=== PATIENT | male | born 1965 | race African-American/Black ===

== ENCOUNTER 2018-06-30 09:41 | Emergency (ER) | payer BC ==
--- NOTE | 2018-06-30 09:57 | PDOC ---
Attending Attestation - Resident Resident Name: Rogelio Pina - ED Attending Attestation I have performed the following: I have examined & evaluated the patient, The case was reviewed & discussed with the resident, I agree w/resident's findings & plan, Exceptions are as noted - HPI HPI: 52 yo M history HTN presents with intermittent nosebleeds for past few weeks. + Frontal sinus pressure. He states that he is very congested at night and in the morning, not during the day. He notes that his nose bleeds only when he blows his nose. Denies headaches, weakness, numbness. - Physicial Exam PE: GENERAL: Awake, alert, and fully oriented, in no acute distress HEAD: No signs of trauma EYES: PERRLA, EOMI, sclera anicteric, conjunctiva clear ENT: Auricles normal inspection, hearing grossly normal, nares patent, oropharynx clear without exudates, +visible postnasal drip. Moist mucosa. + Boggy turbinates B/L with friable tissue to the septum. Mild frontal sinus tenderness. NECK: Normal ROM, supple, no lymphadenopathy, JVD, or masses EXTREMITIES: Normal range of motion, no edema. No clubbing or cyanosis. No cords, erythema, or tenderness NEUROLOGICAL: Cranial nerves II through XII grossly intact. Normal speech, normal gait SKIN: Warm, Dry, normal turgor, no rashes or lesions noted. - Medical Decision Making 06/30/18 10:28 Patient has not been properly taking his BP medication, so he was educated on taking it properly (as this may contribute to bleeding). Will obtain CT of sinuses to r/o an infection. DC home.
[2018-06-30 10:00] VITALS: PULSE 82; TEMP 98.3; BMI 25.7
--- NOTE | 2018-06-30 10:15 | PDOC ---
History of Present Illness - General History Source: Patient Exam Limitations: No Limitations - History of Present Illness Initial Comments: 06/30/18 10:22 52m with pmh of dm2 and HTN presents to the ED for blood tinged mucus when he blows his nose for the past 3 weeks. He has been feeling stuffy since then and has been blowing his nose daily. No shaka blood. Some feeling of fullness over the forehead Denies fever, headaches, chest pains, cough or palpitations. Say code official 1 month ago who recommended doubling his Atenolol medication however patient did'nt know/forgot he was supposed to take it twice a day. Denies intranasal drug use. <Rogeloi Pina - Last Filed: 06/30/18 09:53> <Mikki Pete - Last Filed: 06/30/18 10:48> - General Chief Complaint: Nasal Bleeding Stated Complaint: BLOOD FROM NOSE Time Seen by Provider: 06/30/18 09:52 Past History <Rogelio Pina - Last Filed: 06/30/18 09:53> <Mikki Pete - Last Filed: 06/30/18 10:48> - Past Medical History Allergies/Adverse Reactions: Allergies Allergy/AdvReac Type Severity Reaction Status Date / Time No Known Allergies Allergy Verified 06/30/18 09:51 Home Medications: Ambulatory Orders Aspirin Coated [Ecotrin -] 81 mg PO DAILY 06/30/18 Carvedilol [Coreg -] 12.5 mg PO BID 06/30/18 Fexofenadine HCl [Hilary Allergy] 180 mg PO DAILY #30 tablet 06/30/18 Fluticasone Prop 0.05% Nasal [Flonase -] 1 - 2 spray NS DAILY #1 spray.pump Metformin HCl [Glucophage] 500 mg PO BID 06/30/18 Ramipril [Altace] 5 mg PO DAILY 06/30/18 Review of Systems - Review of Systems Able to Perform ROS?: Yes Is the patient limited Palestinian proficient: No Constitutional: No: Symptoms Reported HEENTM: Yes: See HPI Respiratory: No: Symptoms reported Cardiac (ROS): No: Symptoms Reported ABD/GI: No: Symptoms Reported : No: Symptoms Reported Musculoskeletal: No: Symptoms Reported Integumentary: No: Symptoms Reported Neurological: No: Symptoms reported All Other Systems: Reviewed and Negative <Rogelio Pina - Last Filed: 06/30/18 09:53> *Physical Exam - Physical Exam General Appearance: Yes: Nourished, Appropriately Dressed. No: Apparent Distress HEENT: positive: EOMI, JOHNNA, Other (Erythematous, irritated nasal mucosa. ) Respiratory/Chest: positive: Lungs Clear, Normal Breath Sounds. negative: Chest Tender, Respiratory Distress Cardiovascular: positive: Regular Rhythm, Regular Rate, S1, S2 Gastrointestinal/Abdominal: positive: Normal Bowel Sounds, Flat, Soft. negative : Tender Extremity: positive: Normal Capillary Refill, Normal Inspection, Normal Range of Motion Integumentary: positive: Normal Color, Dry, Warm. negative: Pale Neurologic: positive: Fully Oriented, Alert, Normal Mood/Affect, Normal Response , Motor Strength 5/5 <Rogelio Pina - Last Filed: 06/30/18 09:53> - Vital Signs Last Vital Signs Temp Pulse Resp BP Pulse Ox 98.3 F 82 15 148/97 98 06/30/18 09:51 06/30/18 09:51 06/30/18 09:51 06/30/18 10:26 06/30/18 09:51 <Mikki Pete - Last Filed: 06/30/18 10:48> Moderate Sedation - Procedure Monitoring Vital Signs: Procedure Monitoring Vital Signs Temperature 98.3 F 06/30/18 09:51 Pulse Rate 82 06/30/18 09:51 Respiratory Rate 15 06/30/18 09:51 Blood Pressure 148/97 06/30/18 10:26 O2 Sat by Pulse Oximetry (%) 98 06/30/18 09:51 <Mikki Pete - Last Filed: 06/30/18 10:48> Medical Decision Making - Medical Decision Making 06/30/18 10:28 52M with h/o htn and dm2 with blood tinged mucus after nose-blowing. Irritated nasal mucosa vs sinusitis vs cancer. After physical exam this is likely just irritation and dry air exacerbated by nose-blowing. Will obtain sinus CT <Rogelio Pina - Last Filed: 06/30/18 09:53> *DC/Admit/Observation/Transfer <Rogelio Pina - Last Filed: 06/30/18 09:53> - Discharge Dispostion Decision to Admit order: No <Mikki Pete - Last Filed: 06/30/18 10:48> Diagnosis at time of Disposition: Epistaxis - Discharge Dispostion Disposition: HOME Condition at time of disposition: Stable - Prescriptions Prescriptions: Fexofenadine HCl [Hilary Allergy] 180 mg PO DAILY #30 tablet Fluticasone Prop 0.05% Nasal [Flonase -] 1 - 2 spray NS DAILY #1 spray.pump
[2018-06-30 10:26] VITALS: BP 148/97
== END 2018-06-30 10:55 | disposition home or self-care (01) ==
LOC: FER 09:41
DX: R04.0 Epistaxis (principal); E11.9 Type 2 diabetes mellitus without complications; I10 Essential (primary) hypertension
CPT/HCPCS: 70486-TC; 99281-25